=== PATIENT | female | born 1995 | race Hispanic/Latino ===

== ENCOUNTER 2020-08-14 15:50 | Emergency (ER) | payer SELFPAY ==
[2020-08-14 17:37] LABS: SARS-COV-2 RT PCR POSITIVE (NEGATIVE)
--- NOTE | 2020-08-14 17:43 | ER ---
Nurse's Notes [facility] Name: Renee Luna Age: 25 yrs Sex: Female : 1995 Arrival Date: 08/14/2020 Time: 15:54 Bed 2 Private MD: Diagnosis: Coronavirus infection, unspecified Presentation: 08/14 15:58 Chief complaint: Patient states: "I am having problems breathing and my head is jd3 hurting. X 3-4 days. My has COVID.". Coronavirus screen: difficulty breathing, Client presents with at least one sign or symptom that may indicate coronavirus-19. Standard/surgical mask placed on the client. Provider contacted for isolation considerations. Ebola Screen: Patient negative for fever greater than or equal to 101.5 degrees Fahrenheit, and additional compatible Ebola Virus Disease symptoms. Initial Sepsis Screen: Does the patient meet any 2 criteria? No. Patient's initial sepsis screen is negative. Does the patient have a suspected source of infection? No. Patient's initial sepsis screen is negative. Risk Assessment: Do you want to hurt yourself or someone else? Patient reports no desire to harm self or others. Note Tylenol taken at 1400. Onset of symptoms was August 11, 2020. 15:58 Method Of Arrival: Ambulatory [facility] 15:58 Acuity: AMY 4 jd3 Triage Assessment: 16:44 Headache History: Denies prior headaches. zb 16:44 Pain: Also complains of no other associated symptoms. 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 - Social history:: Smoking status: Patient denies any tobacco usage or history of. Screenin:42 Abuse screen: Denies threats or abuse. Denies injuries from another. Abuse screen: zb Denies threats or abuse. Nutritional screening: No deficits noted. reports no taste and no smell. . Tuberculosis screening: No symptoms or risk factors identified. Fall Risk None identified. Assessment: 16:39 General: Appears in no apparent distress. uncomfortable, Behavior is calm, cooperative, zb appropriate for age, Reports chills for 2-3 days, fever for 2-3 days, feeling ill for 2-3 days, fatigue for 2-3 days. Pain: Complains of pain in forehead Pain does not radiate. Pain currently is 6 out of 10 on a pain scale. Quality of pain is described as aching, Pain began 1 day ago. Is continuous, Alleviated by nothing. Neuro: Level of Consciousness is awake, alert, obeys commands, Oriented to person, place, time, situation. Cardiovascular: Heart tones S1 S2 present Capillary refill < 3 seconds in bilateral fingers Patient's skin is warm and dry. Pulses are all present. Respiratory: Reports shortness of breath on exertion cough that is pain with cough since 3 days Airway is patent Respiratory effort is even, unlabored, Respiratory pattern is regular, symmetrical, Breath sounds are clear bilaterally. the patient has mild shortness of breath. Respiratory: Denies pain with respiration. GI: Abdomen is round non-distended, Bowel sounds present X 4 quads. Patient currently denies constipation, diarrhea, nausea, vomiting. : No signs and/or symptoms were reported regarding the genitourinary system. EENT: No signs and/or symptoms were reported regarding the EENT system. Derm: Skin is intact, is healthy with good turgor, Skin is diaphoretic, Skin is normal, Skin temperature is warm. Musculoskeletal: Circulation, motion, and sensation intact. Range of motion: intact in all extremities. 17:57 Reassessment: Patient appears in no apparent distress at this time. Patient and/or zb family updated on plan of care and expected duration. Pain level reassessed. Patient is alert, oriented x 3, equal unlabored respirations, skin warm/dry/pink. pt educated on covid precautions. Vital Signs: 16:00 BP 115 / 76; Pulse 99; Resp 17 S; Temp 98.0(TE); Pulse Ox 99% on R/A; Weight 104.33 kg jd3 (R); Height 5 ft. 6 in. (167.64 cm) (R); Pain 6/10; 16:44 BP 108 / 88; Pulse 98; Resp 18; Pulse Ox 98% on R/A; zb 17:50 BP 106 / 84; Pulse 91; Resp 18; Pulse Ox 98% on R/A; zb 16:00 Body Mass Index 37.12 (104.33 kg, 167.64 cm) [facility] ED Course: 15:54 Patient arrived in ED. ag5 15:57 Carlos Yao PA is PHCP. [facility] 15:57 Mir Gutierres MD is Attending Physician. [facility] 15:59 Triage completed. jd3 16:00 Arm band placed on. j 16:25 Ángela Park, RN is Primary Nurse. zb 16:43 Patient has correct armband on for positive identification. Bed in low position. Call zb light in reach. Side rails up X 1. Pulse ox on. NIBP on. 17:57 No provider procedures requiring assistance completed. Patient did not have IV access zb during this emergency room visit. Administered Medications: No medications were administered Outcome: 17:42 Discharge ordered by . [facility] 17:58 Discharged to home ambulatory. zb 17:58 Condition: stable 17:58 Discharge instructions given to patient, Instructed on discharge instructions, follow up and referral plans. medication usage, covid precautions Demonstrated understanding of instructions, follow-up care, medications, covid precautions Prescriptions given X 3. 17:58 Patient left the ED. zb Signatures: Carlos Yao PA PA Salas Orosco RN RN Deanna Guerra 5 Ángela Park RN RN zb Corrections: (The following items were deleted from the chart) 16:46 16:39 Cardiovascular: Heart tones S1 S2 present Capillary refill < 3 seconds in zb bilateral fingers Patient's skin is warm and dry. Pulses are all present. zb 16:46 16:39 Derm: Skin is intact, is healthy with good turgor, Skin is dry, Skin is normal, zb Skin temperature is warm zb 16:47 16:44 BP 91 / 54; Pulse 98bpm; Resp 18bpm; Pulse Ox 98% RA; zb zb
--- NOTE | 2020-08-14 17:44 | EDPHYS ---
Physician Documentation [facility] Name: Renee Luna Age: 25 yrs Sex: Female : 1995 Arrival Date: 08/14/2020 Time: 15:54 Bed 2 Private MD: ED Physician Mir Gutierres HPI: 08/14 17:06 This 25 yrs old Female presents to ER via Ambulatory with complaints of cough. jmm 17:06 The patient or guardian reports cough. Onset: The symptoms/episode began/occurred jmm gradually, 3 day(s) ago. Modifying factors: The symptoms are alleviated by nothing. the symptoms are aggravated by nothing. Associated signs and symptoms: Pertinent negatives: fever, vomiting. This is a 25 year old female with no chronic medical ocndiitons that presents to the ED with complaints oc cough, shortness of breath, congestion. recently diagnosed with covid. Patient's symptoms have been ongoing for 3 days. . 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 - Social history:: Smoking status: Patient denies any tobacco usage or history of. ROS: 17:06 Constitutional: Positive for body aches, chills, fever. jmm 17:06 Respiratory: Positive for cough. 17:06 Neuro: Positive for headache. 17:06 All other systems are negative. Exam: 17:06 Constitutional: This is a well developed, well nourished patient who is awake, alert, jmm and in no acute distress. Head/Face: atraumatic. Eyes: EOMI, no conjunctival erythema appreciated ENT: Moist Mucus Membranes Neck: Trachea midline, Supple Chest/axilla: Normal chest wall appearance and motion. Cardiovascular: Regular rate and rhythm. No edema appreciated Respiratory: Normal respirations, no respiratory distress appreciated Abdomen/GI: Non distended, soft Back: Normal ROM Skin: General appearance color normal MS/ Extremity: Moves all extremities, no obvious deformities appreciated, no edema noted to the lower extremities Neuro: Awake and alert, normal gait Psych: Behavior is normal, Mood is normal, Patient is cooperative and pleasant Vital Signs: 16:00 BP 115 / 76; Pulse 99; Resp 17 S; Temp 98.0(TE); Pulse Ox 99% on R/A; Weight 104.33 kg jd3 (R); Height 5 ft. 6 in. (167.64 cm) (R); Pain 6/10; 16:44 BP 108 / 88; Pulse 98; Resp 18; Pulse Ox 98% on R/A; zb 17:50 BP 106 / 84; Pulse 91; Resp 18; Pulse Ox 98% on R/A; zb 16:00 Body Mass Index 37.12 (104.33 kg, 167.64 cm) jd3 MDM: 16:38 Patient medically screened. [facility] 17:37 Data reviewed: vital signs, nurses notes. Counseling: I had a detailed discussion with pranay the patient and/or guardian regarding: the historical points, exam findings, and any diagnostic results supporting the discharge/admit diagnosis, lab results, the need for outpatient follow up. ED course: Patient is alert and non toxic in appearance in the ED. No signs of resp distress. patient is advised to follow up with pcp and otherwise given strict return precautions. patient understood and agrees with the plan of care. . 08/14 16:12 Order name: COVID-19 : Document "Date of Symptom Onset" if Symptomatic. iw 08/14 17:37 Order name: COVID-19/FLU A+B; Complete Time: 17:37 EDMS Administered Medications: No medications were administered Disposition: 18:17 Co-signature as Attending Physician, Mir Gutierres MD. rn Disposition: 08/14/20 17:42 Discharged to Home. Impression: Coronavirus infection, unspecified. - Condition is Stable. - Discharge Instructions: COVID-19. - Prescriptions for ivermectin 3 mg Oral tablet - take 6 tablet by ORAL route as directed one dose today and one dose on day 3; 12 tablet. Prednisone 20 mg Oral Tablet - take 3 tablet by ORAL route once daily for 5 days; 15 tablet. Albuterol Sulfate 90 mcg/actuation - inhale 1-2 puff by INHALATION route every 4-6 hours; 1 Inhaler. - Medication Reconciliation Form, Thank You Letter, Antibiotic Education, Prescription Opioid Use form. - Follow up: Private Physician; When: 2 - 3 days; Reason: Recheck today's complaints, Continuance of care, Re-evaluation by your physician. Signatures: Dispatcher [employer] EDAZ Carlos Yao PA PA jmm Nieto, Roman, MD MD rn Davies, Jonathon, RN RN jd3 Brown, Zipporah, RN RN zb Corrections: (The following items were deleted from the chart) 16:38 16:03 Influenza Screen (A ordered. EDAZ EDAZ 16:38 16:03 Influenza Screen (A \\T\\ B)+[id number].BRZ ordered. EDAZ EDMS 16:39 16:12 CORONAVIRUS ordered. [facility] EDMS 17:58 17:42 08/14/2020 17:42 Discharged to Home. Impression: Coronavirus infection, zb unspecified. Condition is Stable. Forms are Medication Reconciliation Form, Thank You Letter, Antibiotic Education, Prescription Opioid Use. Follow up: Private Physician; When: 2 - 3 days; Reason: Recheck today's complaints, Continuance of care, Re-evaluation by your physician. pranay
[2020-08-14 18:06] VITALS: TEMP 98
[2020-08-14 18:07] VITALS: BP 108/88; O2SAT 98
== END 2020-08-14 17:58 | disposition home or self-care (01) ==
LOC: ER 15:50
DX: U07.1 COVID-19 (principal)
CPT/HCPCS: 0240U; 99283

== ENCOUNTER 2020-08-18 16:37 | Inpatient (IN) | payer SELFPAY ==
[2020-08-18] MEDS ORDERED: ACETAMINOPHEN 500 MG TAB ONE (17:41)
[2020-08-18] MEDS ORDERED: Remdesivir 200 MG in NA CHLORIDE 0.9% 250 ML IV ONE (18:00)
--- NOTE | 2020-08-18 18:08 | RAD REPORT ---
EXAM DESCRIPTION: RAD - Chest Single View - 08/18/2020 6:02 pm CLINICAL HISTORY: Cough;Dyspnea Chest pain. COMPARISON: No comparisons FINDINGS: Portable technique limits examination quality. Moderate bilateral pulmonary opacities are seen likely representing COVID pneumonia. The heart is nor mal in size. No displaced fractures.
[2020-08-18 18:25] LABS: Absolute Lymphocytes (CBC) 0.6 K/uL (0.7-4.9); Basophils % 0.1 % (0-1.3); Hematocrit 35.7 % (36.0-45.0); Lymphocytes % 8.5 % (15.3-44.8); MPV 9.8 fL (7.6-11.3)
[2020-08-18 18:30] LABS: Protime INR 1.56
[2020-08-18 18:40] LABS: ALT/SGPT 24 U/L (12-78); AST/SGOT 16 U/L (15-37); Albumin 3.5 g/dL (3.4-5.0); Alkaline Phosphatase 60 U/L (45-117); BUN Blood Urea Nitrogen 10 mg/dL (7-18); Bicarbonate 24 mmol/L (21-32); Bilirubin Direct < 0.1 mg/dL (0-0.2); Bilirubin Total 0.3 mg/dL (0.2-1.0); Ferritin 114.5 ng/mL (8-388); Glucose Level 106 mg/dL (74-106); Lipase 40 U/L (73-393); Potassium 3.8 mmol/L (3.5-5.1); Protein, Total 8.2 g/dL (6.4-8.2); Sodium Level 141 mmol/L (136-145); Troponin (Emerg Dept Use Only) < 0.02 ng/mL (0.0-0.045)
[2020-08-18 19:20] LABS: Blood Morphology Comment NOT SEEN (NOT SEEN); Platelet Estimate ADEQ
--- NOTE | 2020-08-18 19:36 | RAD REPORT ---
EXAM DESCRIPTION: CT - Chest For Pe Angio - 08/18/2020 7:19 pm CLINICAL HISTORY: Chest pain. Chest pain;Dyspnea COMPARISON: No comparisons TECHNIQUE: CT angiogram of the pulmonary arteries was performed with MIP. All CT scans are performed using dose optimization technique as appropriate and may include automated exposure control or mA/KV adjustment according to patient size. FINDINGS: No evidence of pulmonary thromboembolism. No acute aortic finding demonstrated. Extensive bilateral alveolar lung infiltrates are present likely representing COVID-19 infection. No significant pericardial or pleural fluid. No concerning bony finding. IMPRESSION: No evidence of pulmonary thromboembolism. Extensive bilateral alveolar lung infiltrates are present likely representing COVID-19 infection.
--- NOTE | 2020-08-18 19:51 | ER ---
Nurse's Notes [facility] Name: Renee Luna Age: 25 yrs Sex: Female : 1995 Arrival Date: 08/18/2020 Time: 16:39 Bed 19 Private MD: Diagnosis: Coronavirus infection, unspecified;Hypoxia;Viral pneumonia, unspecified Presentation: 08/18 17:12 Chief complaint: Spouse and/or significant other states: Covid+ 08/14/2020, s/s started ca1 08/10/2020. 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 C/O SOB, fatigue and fever, diarrhea. Tylenol last taken at 1200 today. Coronavirus screen: Client denies travel out of the [place] in the last 14 days. cough unrelated to allergies, diarrhea, fatigue, fever, shortness of breath, Client presents with at least one sign or symptom that may indicate coronavirus-19. Standard/surgical mask placed on the client. Provider contacted for isolation considerations. Client reports previous positive COVID test result. Date of collection: August 14, 2020. Ebola Screen: Patient negative for fever greater than or equal to 101.5 degrees Fahrenheit, and additional compatible Ebola Virus Disease symptoms Patient denies exposure to infectious person. Patient denies travel to an Ebola-affected area in the 21 days before illness onset. No symptoms or risks identified at this time. Initial Sepsis Screen: Does the patient meet any 2 criteria? No. Patient's initial sepsis screen is negative. Does the patient have a suspected source of infection? No. Patient's initial sepsis screen is negative. Risk Assessment: Do you want to hurt yourself or someone else? Patient reports no desire to harm self or others. 17:12 Method Of Arrival: Wheelchair ca1 17:12 Acuity: AMY 3 ca1 21:30 Onset of symptoms is unknown. ll2 Triage Assessment: 17:20 General: Appears distressed, uncomfortable, ill, obese, Behavior is cooperative, bp appropriate for age. Pain: Complains of pain in chest. EENT: No deficits noted. Neuro: Level of Consciousness is awake, alert, obeys commands, Oriented to person, place, time, situation, Appropriate for age. Cardiovascular: No deficits noted. Respiratory: Reports shortness of breath cough that is Onset: The symptoms/episode began/occurred 3 DAYS AGO, the patient has moderate shortness of breath. GI: No signs and/or symptoms were reported involving the gastrointestinal system. : No signs and/or symptoms were reported regarding the genitourinary system. Derm: No deficits noted. Musculoskeletal: No deficits noted. 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 - Social history:: Smoking status: Patient denies any tobacco usage or history of. Screenin:28 Abuse screen: Denies threats or abuse. Denies injuries from another. Nutritional bp screening: No deficits noted. Tuberculosis screening: No symptoms or risk factors identified. Fall Risk None identified. Assessment: 17:20 General: SEE TRIAGE NOTE. bp 18:39 Cardiovascular: Rhythm is sinus rhythm Chest pain is described as mild. Respiratory: bp Airway is patent Respiratory effort is even, labored, Breath sounds are coarse. 19:25 Reassessment: No changes from previously documented assessment. Patient and/or family ll2 updated on plan of care and expected duration. Pain level reassessed. PT RETURNED FROM CT. 20:30 Reassessment: hospitalist to bedside discussing plans to admit, N/C applied at 2L. ll2 21:27 Reassessment: Patient and/or family updated on plan of care and expected duration. Pain ll2 level reassessed. Patient is alert, oriented x 3, equal unlabored respirations, skin warm/dry/pink. report given to RAUL ordonez. Vital Signs: 17:12 BP 100 / 61; Pulse 120; Resp 20; Temp 100.7(O); Pulse Ox 97% on R/A; Weight 104.33 kg ca1 (R); Height 5 ft. 6 in. (167.64 cm) (R); 18:35 BP 108 / 61; Pulse 101; Resp 34; Pulse Ox 96% ; bp 19:26 BP 105 / 57; Pulse 98; Resp 24; Pulse Ox 93% ; ll2 19:46 BP 105 / 57; Pulse 112; Resp 36; Pulse Ox 89% on R/A; dh4 17:12 Body Mass Index 37.12 (104.33 kg, 167.64 cm) ca1 ED Course: 16:39 Patient arrived in ED. ag5 17:14 Triage completed. ca1 17:15 Arm band placed on right wrist. ca1 17:21 Kesha Deshpande FNP-C is [facility]. kb 17:21 Mir Gutierres MD is Attending Physician. kb 17:25 Clinton Edmonds, RN is Primary Nurse. bp 17:28 Patient has correct armband on for positive identification. Bed in low position. Call bp light in reach. Side rails up X2. Adult w/ patient. 17:28 No provider procedures requiring assistance completed. bp 18:01 CXR XRAY In Process Unspecified. EDMS 18:05 Inserted saline lock: 20 gauge in right antecubital area, using aseptic technique. bp Blood collected. 19:19 CT Chest For PE Angio In Process Unspecified. EDMS 20:02 Jose Raul Palacios MD is Hospitalizing Provider. kb 21:29 Patient admitted, IV remains in place. ll2 Administered Medications: 17:26 Drug: Tylenol 1000 mg Route: PO; ca1 18:31 Follow up: Response: No adverse reaction bp 20:39 Drug: Decadron - Dexamethasone 10 mg Route: IVP; Site: right antecubital; ll2 Outcome: 19:51 Discharge ordered by MD. kb 20:02 Decision to Hospitalize by Provider. kb 21:29 Admitted to Med/surg accompanied by tech, with oxygen, Report called to RAUL Ordonez ll2 21:29 Condition: stable 21:29 Instructed on the need for admit. 21:30 Patient left the ED. ll2 Signatures: Dispatcher [employer] EDCO Kesha Deshpande FNP-C FNP-CkClinton Shepherd, RN RN bp Dagmar Marrufo RN RN ca1 AriaDeanna ag5 Johnson Zuniga 4 Twila Munoz RN RN ll2 Corrections: (The following items were deleted from the chart) 17:15 17:12 Chief complaint: Spouse and/or significant other states: Covid+ 08/14/2020, s/s ca1 started 08/10/2020. 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 C/O SOB, fatigue and fever ca1 18:48 18:38 General: SEE TRIAGE NOTE. bp bp
--- NOTE | 2020-08-18 19:52 | EDPHYS ---
Physician Documentation [facility] Name: Renee Luna Age: 25 yrs Sex: Female : 1995 Arrival Date: 08/18/2020 Time: 16:39 Bed 19 Private MD: ED Physician Mir Gutierres HPI: 08/18 20:13 This 25 yrs old Female presents to ER via Wheelchair with complaints of kb Breathing Difficulty, Chest Pain, Diarrhea. 20:13 The patient has shortness of breath at rest. Onset: The symptoms/episode began/occurred kb 8 day(s) ago, and became worse 3 day(s) ago. Duration: The symptoms are continuous. The patient's shortness of breath is aggravated by exertion. Associated signs and symptoms: Pertinent positives: chest pain, non-productive cough, fever, nausea, vomiting. Severity of symptoms: At their worst the symptoms were moderate in the emergency department the symptoms are unchanged. The patient has not experienced similar symptoms in the past. The patient has been recently seen by a physician:. Pt reports shortness of breath, chest pain, fever, n/v/d for 8 days, SOB got worse 3 days ago. 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 - Social history:: Smoking status: Patient denies any tobacco usage or history of. ROS: 20:12 Back: Negative for injury and pain, MS/Extremity: Negative for injury and deformity, kb Skin: Negative for injury, rash, and discoloration, Neuro: Negative for headache, weakness, numbness, tingling, and seizure. 20:12 Constitutional: Positive for fever. 20:12 Cardiovascular: Positive for chest pain, Negative for edema, orthopnea, palpitations, paroxysmal nocturnal dyspnea. 20:12 Respiratory: Positive for cough, shortness of breath. 20:12 Abdomen/GI: Positive for nausea, vomiting, and diarrhea. Exam: 20:12 Constitutional: This is a well developed, well nourished patient who is awake, alert, kb and in no acute distress. Head/Face: Normocephalic, atraumatic. Abdomen/GI: Soft, non-tender, with normal bowel sounds. No distension or tympany. No guarding or rebound. No evidence of tenderness throughout. Skin: Warm, dry with normal turgor. Normal color with no rashes, no lesions, and no evidence of cellulitis. MS/ Extremity: Pulses equal, no cyanosis. Neurovascular intact. Full, normal range of motion. 20:12 Cardiovascular: Rate: tachycardic, Rhythm: regular. 20:12 Respiratory: mild respiratory distress is noted, Respirations: labored breathing, that is mild, tachypnea, that is mild, Breath sounds: are clear throughout. 20:12 Neuro: Orientation: is normal, to person, place, time \T\ situation. Mentation: is normal, able to follow commands, Motor: is normal, moves all fours, Gait: is steady. Vital Signs: 17:12 BP 100 / 61; Pulse 120; Resp 20; Temp 100.7(O); Pulse Ox 97% on R/A; Weight 104.33 kg ca1 (R); Height 5 ft. 6 in. (167.64 cm) (R); 18:35 BP 108 / 61; Pulse 101; Resp 34; Pulse Ox 96% ; bp 19:26 BP 105 / 57; Pulse 98; Resp 24; Pulse Ox 93% ; ll2 19:46 BP 105 / 57; Pulse 112; Resp 36; Pulse Ox 89% on R/A; dh4 17:12 Body Mass Index 37.12 (104.33 kg, 167.64 cm) ca1 MDM: 17:21 Patient medically screened. kb 19:53 Data reviewed: vital signs, nurses notes. Data interpreted: Pulse oximetry: on room air kb is 94 %. Interpretation: acceptable. 20:10 Counseling: I had a detailed discussion with the patient and/or guardian regarding: the kb historical points, exam findings, and any diagnostic results supporting the discharge/admit diagnosis, lab results, radiology results, the need for further work-up and treatment in the hospital. ED course: Pt 93-94% on room air at rest, 89% upon ambulation. Resp 24-32. . 08/18 17:22 Order name: Blood Culture Adult (2) kb 08/18 17:22 Order name: BMP; Complete Time: 18:41 kb 08/18 17:22 Order name: C-Reactive Protein; Complete Time: 18:41 kb 08/18 17:22 Order name: CBC with Diff; Complete Time: 19:21 kb 08/18 17:22 Order name: D-Dimer; Complete Time: 18:39 kb 08/18 17:22 Order name: Ferritin; Complete Time: 18:41 kb 08/18 17:22 Order name: Lactate; Complete Time: 18:34 kb 08/18 17:22 Order name: LFT's; Complete Time: 18:41 kb 08/18 17:22 Order name: Lipase; Complete Time: 18:41 kb 08/18 17:22 Order name: Procalcitonin; Complete Time: 19:14 kb 08/18 17:22 Order name: PT-INR; Complete Time: 18:39 kb 08/18 17:22 Order name: Ptt, Activated; Complete Time: 18:39 kb 08/18 17:22 Order name: Troponin (emerg Dept Use Only); Complete Time: 18:41 kb 08/18 18:27 Order name: Manual Differential; Complete Time: 19:21 EDMS 08/18 17:22 Order name: CXR XRAY; Complete Time: 18:10 kb 08/18 17:22 Order name: EKG; Complete Time: 17:23 kb 08/18 17:22 Order name: Cardiac monitoring; Complete Time: 18:30 kb 08/18 17:22 Order name: Droplet/Contact Precautions; Complete Time: 17:44 kb 08/18 17:22 Order name: EKG - Nurse/Tech; Complete Time: 18:30 kb 08/18 17:22 Order name: IV Start; Complete Time: 18:30 kb 08/18 17:22 Order name: Labs collected and sent; Complete Time: 18:31 kb 08/18 17:22 Order name: O2 Per Protocol; Complete Time: 17:44 kb 08/18 17:22 Order name: O2 Sat Monitoring; Complete Time: 17:44 kb 08/18 18:04 Order name: CT Chest For PE Angio; Complete Time: 19:39 kb 08/18 20:43 Order name: CONS Physician Consult EDMS Administered Medications: 17:26 Drug: Tylenol 1000 mg Route: PO; ca1 18:31 Follow up: Response: No adverse reaction bp 20:39 Drug: Decadron - Dexamethasone 10 mg Route: IVP; Site: right antecubital; ll2 Disposition: 08/18/20 20:02 Hospitalization ordered by Jose Raul Palacios for Observation. Preliminary diagnosis are Coronavirus infection, unspecified, Hypoxia, Viral pneumonia, unspecified. - Bed requested for Telemetry/MedSurg (observation). - Status is Observation. ll2 - Condition is Stable. - Problem is new. - Symptoms are unchanged. Addendum: 08/23/2020 15:56 Co-signature as Attending Physician, Mir Gutierres MD. r n Signatures: Dispatcher [employer] [facility] Kesha Deshpande, BLOOD BANK TECHNICIAN-C BLOOD BANK TECHNICIAN-Ckb Mir Gutierres MD MD rn Lasagna, Tonya RN RN tl1 Dagmar Marrufo RN RN ca1 Twila Munoz RN RN ll2 Clinton Edmonds RN bp Corrections: (The following items were deleted from the chart) 08/18 19:55 19:51 08/18/2020 19:51 Discharged to Home. Impression: Coronavirus infection, kb unspecified. Condition is Stable. Forms are Medication Reconciliation Form, Thank You Letter, Antibiotic Education, Prescription Opioid Use. Follow up: Emergency Department; When: As needed; Reason: Worsening of condition. Follow up: Private Physician; When: 2 - 3 days; Reason: Recheck today's complaints, Continuance of care, Re-evaluation by your physician. kb 20:41 20:08 CORONAVIRUS+ ordered. [facility] 20:59 20:02 Hospitalization Ordered by Jose Raul Palacios MD for Observation. Preliminary tl1 diagnosis is Coronavirus infection, unspecified; Hypoxia; Viral pneumonia, unspecified. Bed requested for Telemetry/MedSurg (observation). Status is Observation. Condition is Stable. Problem is new. Symptoms are unchanged. kb 21:30 20:59 08/18/2020 20:02 Hospitalization Ordered by Jose Raul Palacios MD for Observation. ll2 Preliminary diagnosis is Coronavirus infection, unspecified; Hypoxia; Viral pneumonia, unspecified. Bed requested for Telemetry/MedSurg (observation). Status is Observation. Condition is Stable. Problem is new. Symptoms are unchanged. tl1
[2020-08-18] MEDS ORDERED: dexAMETHasone 10 MG/ML VIAL ONE (20:22)
[2020-08-18] MEDS ORDERED: ACETAMINOPHEN 325 MG TABLET PO PRN (22:15)
[2020-08-18 23:10] LABS: Specific Gravity >= 1.030 (1.005-1.030); Urine Appearance CLEAR; Urine Bilirubin NEGATIVE (NEG); Urine Blood NEGATIVE (NEG); Urine Color YELLOW; Urine Glucose NEGATIVE (NEG); Urine Microscopic Reflex ORDER UMIC; Urine Protein 2+ (NEG); Urine Specific Gravity >=1.030 (1.005-1.030)
[2020-08-18] MEDS: APIXABAN 2.5 MG TABLET PO SCH (23:14)
[2020-08-18] MEDS: THIAMINE 200 MG/2 ML INJ IVP SCH (23:15)
[2020-08-18] MEDS: METHYLPREDNISOLONE 40 MG INJ IV SCH (23:15)
[2020-08-18] MEDS: FAMOTIDINE 20 MG/2 ML VIAL IV SCH (23:15)
[2020-08-18] MEDS: ASCORBIC ACID 500 MG TABLET PO SCH (23:15)
[2020-08-18] MEDS: MELATONIN 5 MG TABLET PO SCH (23:15)
[2020-08-18] MEDS: NA CHLORIDE 0.9% 1,000 ML IV SCH (23:16)
[2020-08-19 00:01] LABS: Urine Bacteria <20 /HPF (<20); Urine RBC <5 /HPF (NONE SEEN)
--- NOTE | 2020-08-19 00:41 | P.HP ---
Certification for Inpatient Patient admitted to: Inpatient With expected LOS: >2 Midnights Patient will require the following post-hospital care: None Practitioner: I am a practitioner with admitting privileges, knowledge of patient current condition, hospital course, and medical plan of care. Services: Services provided to patient in accordance with Admission requirements found in Title 42 Section 412.3 of the Code of Federal Regulations <Bill Jason - Last Filed: 08/19/20 00:35> Patient History Date of Service: 08/19/20 Primary Care Provider: None Reason for admission: COVID Pneumonia, Hypoxia History of Present Illness: This is a 25-year-old female with no known allergies, no past medical history, no surgical history and is currently on no medications that presented to the emergency room after having increased shortness of breath with cough over the last 8 days. Patient states about 3 days ago had increasingly become worse. Has mild shortness of breath at rest but increase shortness of breath with exertion. Patient was worked up in the emergency room today and have a sodium of 141, potassium 3.8, chloride 110, bicarb 24, BUN 10, creatinine 0.54, glucose 106. Patient had a CRP of 131. Patient had a hemoglobin of 11.7, white cell count is 7.5, hematocrit of 35.7, platelet of 201. Chest x-ray shows moderate bilateral pulmonary opacities consistent with covid pneumonia. CT PE did not show any acute pulmonary embolism. Patient stated that she was tested for sores about 4 days ago and was positive. Patient was monitored in the emergency room for while. Patient off oxygen at rest at a oxygen saturation 93% but with any sort of exertion had dropped down to 88-89% room air. Medicine was consulted at that time for further evaluation and patient will be admitted. Home medications list reviewed: Yes - Past Medical/Surgical History Has patient received pneumonia vaccine in the past: No Diabetic: No - Family History Mother Notes: asthma - Social History Smoking Status: Never smoker Smoking therapy provided: No Alcohol use: No CD- Drugs: No Caffeine use: Yes Place of Residence: Home <Melany Jasonshua - Last Filed: 08/19/20 00:35> Date of Service: 08/19/20 <Jose Raul Palacios - Last Filed: 08/23/20 01:48> Allergies No Known Allergies Allergy (Unverified 08/18/20 21:26) Home Medications: NK [No Home Meds] 08/18/20 Review of Systems General: Fever, Malaise Eyes: Unremarkable ENT: Unremarkable Respiratory: Cough, Shortness of Breath, SOB with Excertion Cardiovascular: Unremarkable Gastrointestinal: Nausea, Vomiting Genitourinary: Unremarkable Musculoskeletal: Unremarkable Integumentary: Unremarkable Neurological: Unremarkable Lymphatics: Unremarkable <Bill Jason - Last Filed: 08/19/20 00:35> Physical Examination - Vital Signs Temperature: 98.3 F Blood Pressure: 104/58 Pulse: 93 Respirations: 19 Pulse Ox (%): 95 - Physical Exam General: Alert, In no apparent distress, Oriented x3, Cooperative HEENT: PERRLA, EOMI Neck: Supple, 2+ carotid pulse no bruit, JVD not distended Respiratory: Clear to auscultation bilaterally, Other (Tachypneic) Cardiovascular: No edema, Normal pulses, Regular rate/rhythm, Normal S1 S2, No gallops, No rubs, No murmurs Capillary refill: <2 Seconds Gastrointestinal: Normal bowel sounds, Soft and benign, Non-distended, No ascites, No tenderness, No masses, No rebound, No guarding Musculoskeletal: No clubbing, No swelling, No contractures, No erythema, No tenderness, No warmth Integumentary: No rashes, No breakdown, No significant lesion, No tenderness/swelling, No erythema, No warmth, No cyanosis Neurological: Normal speech, Normal strength at 5/5 x4 extr, Normal tone, Sensation intact, Cranial nerves 3-12 intact, Normal affect Lymphatics: No axilla or inguinal lymphadenopathy - Studies Laboratory Data (last 24 hrs) 08/18/20 18:05: PT 18.0 H, INR 1.56, APTT 25.6 08/18/20 18:05: WBC 7.50, Hgb 11.7 L, Hct 35.7 L, Plt Count 201 08/18/20 18:05: Sodium 141, Potassium 3.8, BUN 10, Creatinine 0.54 L, Glucose 106, Total Bilirubin 0.3, AST 16, ALT 24, Alkaline Phosphatase 60, Lipase 40 L <Bill Jason - Last Filed: 08/19/20 00:35> Assessment and Plan - Problems (Diagnosis) (1) Pneumonia due to COVID-19 virus Current Visit: Yes Status: Acute Plan: Patient has moderate bilateral pulmonary opacities consistent with viral pneumonia from SARs virus. Patient has been placed on vitamin regimen along with steroid therapy, oxygen therapy, anticoagulation therapy. Pulmonology has been consulted for further recommendations. Will also start Remdisivir on patient. We will continue to monitor patient's respiratory drive and will escalate oxygen therapy as needed. Will continue to monitor CBC and BMP daily along with her ferritin and C-reactive protein. (2) Hypoxia Current Visit: Yes Status: Acute Plan: Patient placed on oxygen therapy via nasal cannula and has been tolerating that very well. We will continue to monitor the patient's respiratory status along with continuous pulse oximetry. We will escalate as needed. Discharge Plan: Home Plan to discharge in: 48 Hours - Advance Directives Does patient have a Living Will: No Does patient have a Durable POA for Healthcare: No - Code Status/Comfort Care Code Status Assessed: Yes Code Status: Full Code Critical Care: No Time Spent Managing Pts Care (In Minutes): 70 <Bill Jason - Last Filed: 08/19/20 00:35> - Problems (Diagnosis) (1) Hypoxia Current Visit: Yes Status: Acute (2) Pneumonia due to COVID-19 virus Current Visit: Yes Status: Acute <Jose Raul Palacios - Last Filed: 08/23/20 01:48> Date of Service: 08/19/20 Patient doing well. Patient on 3 L oxygen. Satting 96%. Continue monitoring closely. <Jose Raul Palacios - Last Filed: 08/23/20 01:48>
[2020-08-19 04:12] LABS: Absolute Lymphocytes (CBC) 0.7 K/uL (0.7-4.9); Basophils % 0.1 % (0-1.3); Hematocrit 34.4 % (36.0-45.0); Lymphocytes % 10.1 % (15.3-44.8); RBC Red Blood Cell Count 4.25 M/uL (3.86-4.86)
[2020-08-19 04:45] LABS: BUN Blood Urea Nitrogen 13 mg/dL (7-18); Bicarbonate 27 mmol/L (21-32); Glucose Level 135 mg/dL (74-106); HDL Cholesterol 37 mg/dL (40-60); LDL Cholesterol, Calculated 76 (<130); Potassium 4.4 mmol/L (3.5-5.1); Sodium Level 141 mmol/L (136-145)
--- NOTE | 2020-08-19 05:37 | EKG ---
Test Date: 2020-08-18 Test Time: 17:49:13 Transportation Job Titles: [employer] MEASUREMENT RESULTS: Intervals: Rate: 109 AR: 128 QRSD: 70 QT: 296 QTc: 398 [place]: P: 36 AR: 128 QRS: 41 T: 25 INTERPRETIVE STATEMENTS: Sinus tachycardia Possible Left atrial enlargement Low voltage QRS Borderline ECG No previous ECG available for comparison Electronically Signed On 08-19-20 05:35:22 PHYSICAL THERAPIST CLINIC DIRECTOR by Stef Montiel
[2020-08-19] MEDS: VITAMIN D 5,000 UNIT CAP PO SCH (08:12)
[2020-08-19] MEDS: METHYLPREDNISOLONE 40 MG INJ IV SCH ×2 (08:12→20:43)
[2020-08-19] MEDS: APIXABAN 2.5 MG TABLET PO SCH ×2 (08:12→20:44)
[2020-08-19] MEDS: ZINC SULFATE 220 MG CAP PO SCH (08:13)
[2020-08-19] MEDS: THIAMINE 200 MG/2 ML INJ IVP SCH ×2 (08:13→20:43)
[2020-08-19] MEDS: BENZONATATE 100 MG CAP PO PRN ×2 (08:13→21:33)
[2020-08-19] MEDS: FAMOTIDINE 20 MG/2 ML VIAL IV SCH ×2 (08:13→20:43)
[2020-08-19] MEDS: ASCORBIC ACID 500 MG TABLET PO SCH ×4 (08:13→20:44)
[2020-08-19] MEDS: NA CHLORIDE 0.9% 1,000 ML IV SCH (11:22)
[2020-08-19] MEDS: MELATONIN 5 MG TABLET PO SCH (20:43)
[2020-08-19] MEDS ORDERED: ONDANSETRON 4 MG/2 ML VIAL IV PRN (20:53)
[2020-08-19] MEDS ORDERED: ONDANSETRON 4 MG/2 ML VIAL ONE (21:15)
[2020-08-20] MEDS: NA CHLORIDE 0.9% 1,000 ML IV SCH (00:23)
[2020-08-20 03:49] LABS: Basophils % 0.1 % (0-1.3); Hematocrit 33.4 % (36.0-45.0); Lymphocytes % 7.6 % (15.3-44.8); MPV 9.2 fL (7.6-11.3); RBC Red Blood Cell Count 4.16 M/uL (3.86-4.86)
[2020-08-20 04:01] LABS: ALT/SGPT 22 U/L (12-78); AST/SGOT 13 U/L (15-37); Alkaline Phosphatase 54 U/L (45-117); BUN Blood Urea Nitrogen 15 mg/dL (7-18); Bicarbonate 25 mmol/L (21-32); Bilirubin Total 0.3 mg/dL (0.2-1.0); Ferritin 153.3 ng/mL (8-388); Glucose Level 140 mg/dL (74-106); Magnesium 2.3 mg/dL (1.8-2.4); NT PRO-BNP 133 pg/mL (<125); Phosphorus 3.9 mg/dL (2.5-4.9); Potassium 4.1 mmol/L (3.5-5.1); Protein, Total 7.4 g/dL (6.4-8.2); Sodium Level 146 mmol/L (136-145)
[2020-08-20 04:03] LABS: ALT/SGPT 21 U/L (12-78); AST/SGOT 13 U/L (15-37); Alkaline Phosphatase 51 U/L (45-117); BUN Blood Urea Nitrogen 14 mg/dL (7-18); Bicarbonate 27 mmol/L (21-32); Bilirubin Direct < 0.1 mg/dL (0-0.2); Bilirubin Total 0.3 mg/dL (0.2-1.0); Glucose Level 142 mg/dL (74-106); Potassium 4.1 mmol/L (3.5-5.1); Protein, Total 7.3 g/dL (6.4-8.2); Sodium Level 144 mmol/L (136-145)
[2020-08-20] MEDS: METHYLPREDNISOLONE 40 MG INJ IV SCH ×2 (08:22→19:57)
[2020-08-20] MEDS: ZINC SULFATE 220 MG CAP PO SCH (08:22)
[2020-08-20] MEDS: VITAMIN D 5,000 UNIT CAP PO SCH (08:22)
[2020-08-20] MEDS: APIXABAN 2.5 MG TABLET PO SCH ×2 (08:22→19:57)
[2020-08-20] MEDS: ASCORBIC ACID 500 MG TABLET PO SCH ×4 (08:22→19:57)
[2020-08-20] MEDS: THIAMINE 200 MG/2 ML INJ IVP SCH (08:23)
[2020-08-20] MEDS: FAMOTIDINE 20 MG/2 ML VIAL IV SCH ×2 (08:23→19:57)
[2020-08-20] MEDS: Remdesivir 100 MG in NA CHLORIDE 0.9% 250 ML IV SCH (09:15)
--- NOTE | 2020-08-20 11:49 | P.CNS ---
Date of Consult: 08/20/20 Primary Care Provider: None Chief Complaint: COVID Pneumonia, Hypoxia History of Present Illness: Patient is 25 years of age previously healthy obese admitted with worsening shortness of breath diagnosed with de santiago virus pneumonia become progressively weak for the past 8 days she is doing much better pack on nasal cannula oxygen no other complaints Allergies No Known Allergies Allergy (Unverified 08/18/20 21:26) Home Medications: NK [No Home Meds] 08/18/20 - Past Medical/Surgical History Diabetic: No - Family History Mother Notes: asthma - Social History Alcohol use: No CD- Drugs: No Caffeine use: Yes Place of Residence: Home Review of Systems 10-point ROS is otherwise unremarkable Physical Examination Temp Pulse Resp BP Pulse Ox 97.6 F 68 32 H 104/55 L 93 08/20/20 08:00 08/20/20 08:00 08/20/20 08:00 08/20/20 08:00 08/20/20 08:00 General: Alert, In no apparent distress, Oriented x3 Respiratory: Clear to auscultation bilaterally Cardiovascular: No edema, Normal S1 S2 - Problems (1) Pneumonia due to COVID-19 virus Current Visit: Yes Status: Acute Plan: Patient is 25 years of age admitted with de santiago virus pneumonia she is doing much better on 4 L nasal cannula oxygen plan to discharge tomorrow on O2 continue with steroids for about 2 weeks will give another dose of ivermectin Dc IV fluids vital signs stable follow-up with me in 2 weeks
[2020-08-20] MEDS: IVERMECTIN 3 MG TABLET PO SCH (12:50)
[2020-08-20] MEDS: BENZONATATE 100 MG CAP PO PRN (19:57)
[2020-08-20] MEDS: MELATONIN 5 MG TABLET PO SCH (19:57)
[2020-08-20] MEDS: ALPRAZOLAM 1 MG TABLET PO PRN (21:43)
[2020-08-21 04:30] LABS: ALT/SGPT 34 U/L (12-78); AST/SGOT 18 U/L (15-37); Albumin 2.9 g/dL (3.4-5.0); Alkaline Phosphatase 57 U/L (45-117); Bilirubin Direct 0.2 mg/dL (0-0.2); Bilirubin Total 0.4 mg/dL (0.2-1.0); Protein, Total 7.4 g/dL (6.4-8.2)
[2020-08-21 06:50] LABS: Urine Appearance CLEAR; Urine Bilirubin NEGATIVE (NEG); Urine Blood NEGATIVE (NEG); Urine Color YELLOW; Urine Glucose NEGATIVE (NEG); Urine Protein 1+ (NEG); Urine Specific Gravity >=1.030 (1.005-1.030)
[2020-08-21 07:38] LABS: Urine RBC <5 /HPF (NONE SEEN)
[2020-08-21 07:39] LABS: Urine Bacteria <20 /HPF (<20)
[2020-08-21] MEDS ORDERED: ALPRAZOLAM 1 MG TABLET PO SCH (09:00)
[2020-08-21] MEDS: Remdesivir 100 MG in NA CHLORIDE 0.9% 250 ML IV SCH (09:56)
[2020-08-21] MEDS: METHYLPREDNISOLONE 40 MG INJ IV SCH ×2 (09:56→21:03)
[2020-08-21] MEDS: ASCORBIC ACID 500 MG TABLET PO SCH ×4 (09:56→21:05)
[2020-08-21] MEDS: FAMOTIDINE 20 MG/2 ML VIAL IV SCH ×2 (09:57→21:02)
[2020-08-21] MEDS: VITAMIN D 5,000 UNIT CAP PO SCH (09:57)
[2020-08-21] MEDS: ZINC SULFATE 220 MG CAP PO SCH (09:57)
[2020-08-21] MEDS: APIXABAN 2.5 MG TABLET PO SCH ×2 (09:57→21:02)
[2020-08-21] MEDS: BENZONATATE 100 MG CAP PO PRN (10:08)
[2020-08-21] MEDS: ALPRAZOLAM 1 MG TABLET PO PRN ×2 (10:08→22:18)
[2020-08-21] MEDS: MELATONIN 5 MG TABLET PO SCH (21:02)
[2020-08-22 03:03] VITALS: BMI 35.8
[2020-08-22 04:20] LABS: ALT/SGPT 82 U/L (12-78); AST/SGOT 43 U/L (15-37); Alkaline Phosphatase 55 U/L (45-117); Bilirubin Direct 0.2 mg/dL (0-0.2); Bilirubin Total 0.5 mg/dL (0.2-1.0); Protein, Total 7.4 g/dL (6.4-8.2)
[2020-08-22] MEDS: ZINC SULFATE 220 MG CAP PO SCH (08:16)
[2020-08-22] MEDS: FAMOTIDINE 20 MG/2 ML VIAL IV SCH ×2 (08:16→20:57)
[2020-08-22] MEDS: APIXABAN 2.5 MG TABLET PO SCH ×2 (08:16→20:56)
[2020-08-22] MEDS: VITAMIN D 5,000 UNIT CAP PO SCH (08:16)
[2020-08-22] MEDS: METHYLPREDNISOLONE 40 MG INJ IV SCH ×2 (08:17→20:57)
[2020-08-22] MEDS: ALPRAZOLAM 1 MG TABLET PO PRN ×2 (08:17→23:47)
[2020-08-22] MEDS: ASCORBIC ACID 500 MG TABLET PO SCH ×4 (08:17→20:56)
--- NOTE | 2020-08-22 09:18 | P.PN ---
Subjective Date of Service: 08/20/20 Patient is on antiviral. Continue for a total 5 days. Continue monitoring oxygenation. Arrange for home oxygen today prior to last dose of antiviral Review of Systems 10-point ROS is otherwise unremarkable Physical Examination - Vital Signs Temperature: 97.6 F Blood Pressure: 102/64 Pulse: 67 Respirations: 32 Pulse Ox (%): 93 - Physical Exam General: Alert, In no apparent distress HEENT: Atraumatic, PERRLA, EOMI Neck: Supple, JVD not distended Respiratory: Clear to auscultation bilaterally, Normal air movement Cardiovascular: Regular rate/rhythm, Normal S1 S2 Gastrointestinal: Normal bowel sounds, No tenderness Musculoskeletal: No tenderness Integumentary: No rashes Neurological: Normal speech, Normal tone, Normal affect Lymphatics: No axilla or inguinal lymphadenopathy - Studies Medications List Reviewed: Yes Assessment & Plan - Problems (Diagnosis) (1) Hypoxia Current Visit: Yes Status: Acute (2) Pneumonia due to COVID-19 virus Current Visit: Yes Status: Acute - Plan 1. Monitor oxygenation 2. Continue IV steroids 3. Repeat chest x-ray is symptoms are progressively worsening 4. O2 per protocol 5. Pulmonary consultation 6. Continue with albuterol inhaler therapy; 7. Continue antivirals 8. Monitor LFTs 9. Repeat labs including D-dimer, ferritin, and CRP and LFTs 10. GI and DVT prophylaxis - Advance Directives Does patient have a Living Will: No Does patient have a Durable POA for Healthcare: No - Code Status/Comfort Care Code Status: Full Code
--- NOTE | 2020-08-22 09:19 | P.PN ---
Subjective Date of Service: 08/21/20 Patient continues to remain stable. She does not really making eye contact and she has a flat affect. She complains about going home. However, she remains hypoxic. Have advised her to finish her antiviral therapy and then reassess whether she is stable for discharge. She needs to get more active and start doing some more on her own. Review of Systems 10-point ROS is otherwise unremarkable Physical Examination - Vital Signs Temperature: 97.6 F Blood Pressure: 102/64 Pulse: 67 Respirations: 32 Pulse Ox (%): 93 - Physical Exam General: Alert, In no apparent distress, Oriented x3, Mild distress Respiratory: Expiratory wheezes, Rhonchi/gurgles Cardiovascular: Regular rate/rhythm, Normal S1 S2, Systolic murmur Gastrointestinal: Normal bowel sounds, Soft and benign, Non-distended Musculoskeletal: No clubbing, No swelling Neurological: Normal speech, Sensation intact, Cranial nerves 3-12 intact, Abnormal gait, Abnormal strength - Studies Medications List Reviewed: Yes Assessment & Plan - Problems (Diagnosis) (1) Hypoxia Current Visit: Yes Status: Acute (2) Pneumonia due to COVID-19 virus Current Visit: Yes Status: Acute (3) Morbid obesity Current Visit: Yes Status: Acute - Plan Plan of care as mentioned below 1. Monitor oxygenation 2. Continue IV steroids 3. We may repeat chest x-ray if symptoms are worsening 4. O2 per protocol 5. Pulmonary consultation Appreciated 6. Continue with albuterol inhaler therapy; 7. Continue antivirals 8. Monitor LFTs 9. [place] inflammatory markers as well 10. GI and DVT prophylaxis Discharge Plan: Home Plan to discharge in: Greater than 2 days - Advance Directives Does patient have a Living Will: No Does patient have a Durable POA for Healthcare: No - Code Status/Comfort Care Code Status: Full Code Critical Care: No Time Spent Managing PTS Care (In Minutes): 35
[2020-08-22] MEDS: Remdesivir 100 MG in NA CHLORIDE 0.9% 250 ML IV SCH (09:28)
[2020-08-22] MEDS ORDERED: IVERMECTIN 3 MG TABLET PO ONE (11:52)
--- NOTE | 2020-08-22 11:53 | P.PN ---
Subjective Date of Service: 08/22/20 Primary Care Provider: None Chief Complaint: COVID Pneumonia, Hypoxia Subjective: Improving ( patient is doing well did experience some desat early this morning back to her baseline) Review of Systems Respiratory: SOB with Excertion Physical Examination - Vital Signs Temperature: 97.6 F Blood Pressure: 102/64 Pulse: 67 Respirations: 32 Pulse Ox (%): 93 - Physical Exam General: Alert, In no apparent distress, Oriented x3 Neck: Supple Respiratory: Clear to auscultation bilaterally - Studies Medications List Reviewed: Yes Assessment & Plan - Problems (Diagnosis) (1) Pneumonia due to COVID-19 virus Current Visit: Yes Status: Acute Plan: respiratory failure doing well he does experience some desat at night advice to sleep in prone position plan for discharge on 2-4 L of nasal cannula oxygen labs reviewed niece to be on full anticoagulation and prednisone 20 b.i.d. for a week then 10 twice a day followed multi vitamin support of added to 1 dose of ivermectin
[2020-08-22] MEDS: IVERMECTIN 3 MG TABLET PO SCH (12:30)
[2020-08-22] MEDS: MELATONIN 5 MG TABLET PO SCH (20:56)
--- NOTE | 2020-08-23 01:58 | P.PN ---
Date of Service: 08/22/20 Subjective Patient continues to appear depressed. Apparently the patient had a rough night last night and oxygen saturations decreased suddenly. Patient had a coughing spell and oxygen saturations were in the 70%. Patient has been on high flow since that time. Currently, patient on 90% percent high flow and oxygen saturations are 95%. Review of Systems 10-point ROS is otherwise unremarkable Physical Examination - Vital Signs Reviewed - Physical Exam General: Alert, In no apparent distress, Oriented x3, Mild distress Respiratory: Expiratory wheezes, Rhonchi/gurgles Cardiovascular: Regular rate/rhythm, Normal S1 S2, Systolic murmur Gastrointestinal: Normal bowel sounds, Soft and benign, Non-distended Musculoskeletal: No clubbing, No swelling Neurological: Normal speech, Sensation intact, Cranial nerves 3-12 intact, Abnormal gait, Abnormal strength Assessment & Plan - Problems (Diagnosis) (1) Hypoxia Current Visit: Yes Status: Acute (2) Pneumonia due to COVID-19 virus Current Visit: Yes Status: Acute (3) Morbid obesity Current Visit: Yes Status: Acute - Plan Plan of care as mentioned below 1. Monitor oxygenation; Currently on high flow and 90% 2. Continue IV steroids 3. We may repeat chest x-ray if symptoms are worsening 4. O2 per protocol 5. Pulmonary consultation appreciated 6. Continue with albuterol inhaler therapy; 7. Continue antivirals 8. Monitor LFTs 9. [place] inflammatory markers as well 10. GI and DVT prophylaxis
[2020-08-23 04:18] LABS: ALT/SGPT 67 U/L (12-78); AST/SGOT 18 U/L (15-37); Alkaline Phosphatase 28 U/L (45-117); Bilirubin Direct 0.2 mg/dL (0-0.2); Bilirubin Total 0.5 mg/dL (0.2-1.0); Protein, Total 7.4 g/dL (6.4-8.2)
[2020-08-23 08:39] VITALS: BP 102/57; TEMP 98.6
[2020-08-23 08:43] LABS: C-Reactive Protein 7.62 mg/L (<3.00); Ferritin 121.9 ng/mL (8-388)
[2020-08-23] MEDS: FAMOTIDINE 20 MG/2 ML VIAL IV SCH (08:44)
[2020-08-23] MEDS: VITAMIN D 5,000 UNIT CAP PO SCH (08:44)
[2020-08-23] MEDS: ASCORBIC ACID 500 MG TABLET PO SCH (08:44)
[2020-08-23] MEDS: APIXABAN 2.5 MG TABLET PO SCH (08:44)
[2020-08-23] MEDS: ZINC SULFATE 220 MG CAP PO SCH (08:44)
[2020-08-23] MEDS: METHYLPREDNISOLONE 40 MG INJ IV SCH (08:44)
[2020-08-23 08:51] LABS: Basophils % 0.3 % (0-1.3); Lymphocytes % 16.1 % (15.3-44.8); MPV 9.3 fL (7.6-11.3); RBC Red Blood Cell Count 5.04 M/uL (3.86-4.86)
[2020-08-23] MEDS ORDERED: Remdesivir 100 MG in NA CHLORIDE 0.9% 250 ML IV SCH (09:00)
[2020-08-23 09:08] VITALS: O2SAT 98
[2020-08-23 10:40] LABS: Blood Morphology Comment NOT SEEN (NOT SEEN); Platelet Estimate INCR
--- NOTE | 2020-08-23 10:52 | P.DS ---
Admission Date: 08/18/20 Discharge Date: 08/23/20 Primary Care Provider: None Disposition: AMA-LEFT AGAINST MEDICAL ADVIC Discharge Condition: GOOD Reason for Admission: COVID Pneumonia, Hypoxia Consultations: Pulmonary-Dr. Purcell Procedures: COVID: Positive CT Scan: FINDINGS: No evidence of pulmonary thromboembolism. No acute aortic finding demonstrated. Extensive bilateral alveolar lung infiltrates are present likely representing COVID-19 infection. No significant pericardial or pleural fluid. No concerning bony finding. IMPRESSION: No evidence of pulmonary thromboembolism. Extensive bilateral alveolar lung infiltrates are present likely representing COVID-19 infection. Medical problem list: Dyspnea secondary to acute respiratory failure related to bilateral COVID 19 pneumonia Depression Obesity, BMI 35.8 Brief History of Present Illness: 25-year-old female with no known allergies, no past medical history, no surgical history and is currently on no medications that presented to the emergency room after having increased shortness of breath with cough over the last 8 days. Patient states about 3 days ago had increasingly become worse. Has mild shortness of breath at rest but increase shortness of breath with exertion. Patient was worked up in the emergency room today and have a sodium of 141, potassium 3.8, chloride 110, bicarb 24, BUN 10, creatinine 0.54, glucose 106. Patient had a CRP of 131. Patient had a hemoglobin of 11.7, white cell count is 7.5, hematocrit of 35.7, platelet of 201. Chest x-ray shows moderate bilateral pulmonary opacities consistent with covid pneumonia. CT PE did not show any acute pulmonary embolism. Patient was admitted for further evaluation and treatment. Hospital Course: Patient presented with dyspnea secondary to acute respiratory failure related to bilateral COVID 19 pneumonia. The patient was admitted for treatment. Patient received IV steroids, ivermectin and supplementation. Patient was seen and evaluated by pulmonology. The patient did require high-flow oxygen. Patient also appears to have underlying depression. During the course of her stay her condition required more oxygen then when she first presented. Patient desired to go home. It was explained to the patient that the patient should wait until patient can safely use less than 4 L per nasal cannula. She will continue with oxygen to maintain sats above 93%. Patient was adamant about going home. Patient wishes to leave against medical advice. This was addressed in detail with the on speaker phone and in person. Both the patient and understand the consequences of leaving prematurely including worsening COVID respiratory failure requiring intubation and ultimately . Patient still wishes to leave against medical advice. Oxygen has been arranged prior to discharge. This was discussed in detail with pulmonology. Patient has signed paperwork. I have readdressed my concerns with the patient and the . expresses that the patient is able to make her own decisions. Patient will leave against medical advice. At this time I will recommend that the patient follow up with pulmonology within 1 week to follow up this h ospitalization. Prescriptions for the patient include prednisone 20 mg 1 pill twice daily for 7 days then 1 pill once daily for 7 days. Patient will also continue with vitamin-C 500 mg 3 times a day, vitamin-D 5000 units daily, thiamine 100 mg 1 pill twice daily, zinc 220 mg daily, and melatonin 5 mg at bedtime. Recommend to monitor her oxygen level consistently. Recommend to maintain oxygen above 93%. Patient may need to limit her activities. Recommend follow up with pulmonology as directed above to continue her care. Education on COVID 19 isolation and education will be provided. A list of PCPs in the area to establish care will also be provided. Patient likely has underlying depression. Will recommend that she follow up with her PCP or psychiatry to further address. Patient with obesity, BMI 35.8. Lifestyle modification education provided. Vital Signs/Physical Exam: Temp Pulse Resp BP Pulse Ox 98.6 F 62 24 H 102/57 L 97 08/23/20 08:00 08/23/20 08:00 08/23/20 08:00 08/23/20 08:00 08/23/20 08:00 General: Alert, Other (Patient appears depressed. Flat affect noted) HEENT: Atraumatic Neck: Supple Respiratory: Other (Patient was requiring high-flow oxygen at 90%) Cardiovascular: Normal pulses, Regular rate/rhythm Gastrointestinal: No guarding Integumentary: No tenderness/swelling Neurological: Normal speech, Normal strength at 5/5 x4 extr, Normal tone, Normal affect Laboratory Data at Discharge: WBC 12.70 K/uL (4.3-10.9) H 08/23/20 08:05 Hgb 13.3 g/dL (12.0-15.0) 08/23/20 08:05 Hct 41.0 % (36.0-45.0) D 08/23/20 08:05 Plt Count 407 K/uL (152-406) H D 08/23/20 08:05 PT 18.0 SECONDS (9.5-12.5) H 08/18/20 18:05 INR 1.56 08/18/20 18:05 APTT 25.6 SECONDS (24.3-36.9) 08/18/20 18:05 Sodium 144 mmol/L (136-145) 08/20/20 03:30 Sodium 146 mmol/L (136-145) H 08/20/20 03:30 Potassium 4.1 mmol/L (3.5-5.1) 08/20/20 03:30 Potassium 4.1 mmol/L (3.5-5.1) 08/20/20 03:30 BUN 14 mg/dL (7-18) 08/20/20 03:30 BUN 15 mg/dL (7-18) 08/20/20 03:30 Creatinine 0.58 mg/dL (0.55-1.3) 08/23/20 03:23 Glucose 140 mg/dL (74-106) H 08/20/20 03:30 Glucose 142 mg/dL (74-106) H 08/20/20 03:30 Phosphorus 3.9 mg/dL (2.5-4.9) 08/20/20 03:30 Magnesium 2.3 mg/dL (1.8-2.4) 08/20/20 03:30 Total Bilirubin 0.5 mg/dL (0.2-1.0) 08/23/20 03:23 AST 18 U/L (15-37) 08/23/20 03:23 ALT 67 U/L (12-78) 08/23/20 03:23 Alkaline Phosphatase 28 U/L (45-117) L 08/23/20 03:23 Triglycerides 118 mg/dL (<150) 08/19/20 03:17 Cholesterol 137 mg/dL (<200) 08/19/20 03:17 HDL Cholesterol 37 mg/dL (40-60) L 08/19/20 03:17 Cholesterol/HDL Ratio 3.70 08/19/20 03:17 Lipase 40 U/L (73-393) L 08/18/20 18:05 Home Medications: Ascorbic Acid [Vitamin C*] 500 mg PO TID #90 tablet 08/23/20 Aspirin [Aspirin EC 81 MG] 81 mg PO DAILY #30 tablet. 08/23/20 Cholecalciferol (Vitamin D3) [Vitamin D 5,000 IU Cap*] 5,000 unit PO DAILY #30 cap 08/23/20 Melatonin 5 mg PO BEDTIME #30 tablet 08/23/20 Thiamine HCl 100 mg PO BID #60 tablet 08/23/20 Zinc Sulfate [Zinc Sulfate*] 220 mg PO DAILY #30 cap 08/23/20 predniSONE [Prednisone*] 20 mg PO SEECOM #21 tab 08/23/20 New Medications: Aspirin [Aspirin EC 81 MG] 81 mg PO DAILY #30 tablet. Melatonin 5 mg PO BEDTIME #30 tablet predniSONE [Prednisone*] 20 mg PO SEECOM #21 tab Thiamine HCl 100 mg PO BID #60 tablet Ascorbic Acid [Vitamin C*] 500 mg PO TID #90 tablet Cholecalciferol (Vitamin D3) [Vitamin D 5,000 IU Cap*] 5,000 unit PO DAILY #30 cap Zinc Sulfate [Zinc Sulfate*] 220 mg PO DAILY #30 cap Physician Discharge Instructions: Patient presented with dyspnea secondary to acute respiratory failure related to bilateral COVID 19 pneumonia. The patient was admitted for treatment. Patient received IV steroids, ivermectin and supplementation. Patient was seen and evaluated by pulmonology. The patient did require high-flow oxygen. Patient also appears to have underlying depression. During the course of her stay her condition required more oxygen then when she first presented. Patient desired to go home. It was explained to the patient that the patient should wait until patient can safely use less than 4 L per nasal cannula. Patient was adamant about going home. Patient wishes to leave against medical advice. This was addressed in detail with the on speaker phone and in person. Both the patient and understand the consequences of leaving prematurely including worsening COVID respiratory failure requiring intubation and ultimately . Patient still wishes to leave against medical advice. Oxygen has been arranged prior to discharge. She will continue with oxygen to maintain sats above 93%. This was discussed in detail with pulmonology. Patient has signed paperwork. I have readdressed my concerns with the patient and the . expresses that the patient is able to make her own decisions. Patient will leave against medical advice. At this time I will recommend that the patient follow up with pulmonology within 1 week to follow up this hospitalization. Prescriptions for the patient include prednisone 20 mg 1 pill twice daily for 7 days then 1 pill once daily for 7 days. Patient will also continue with vitamin-C 500 mg 3 times a day, vitamin-D 5000 units daily, thiamine 100 mg 1 pill twice daily, zinc 220 mg daily, and melatonin 5 mg at bedtime. Recommend to monitor her oxygen level consistently. Recommend to maintain oxygen above 93%. Patient may need to limit her activities. Recommend follow up with pulmonology as directed above to continue her care. Education on COVID 19 isolation and education will be provided. A list of PCPs in the area to establish care will also be provided. Patient likely has underlying depression. Will recommend that she follow up with her PCP or psychiatry to further address. Patient with obesity, BMI 35.8. Lifestyle modification education provided. Diet: AHA Activity: Ad jason Followup: NONE,NONE [Primary Care Provider] - Time spent managing pt's care (in minutes): 55
== END 2020-08-23 10:59 | disposition left against medical advice (07) | DRG 177 ==
LOC: ER 16:37 → 4TH 21:36
PROVIDERS: ADMIT Hospitalist; ATTEND Family Medicine
PROC: XW033E5 Introduction of Remdesivir Anti-infective into Peripheral Vein, Percutaneous Approach, New Technology Group 5 (ICD-10-PCS; principal; 2020-08-23)
DX: U07.1 COVID-19 (principal); J12.82 Pneumonia due to coronavirus disease 2019; J96.01 Acute respiratory failure with hypoxia; F32.9 Major depressive disorder, single episode, unspecified; E66.01 Morbid (severe) obesity due to excess calories; Z68.35 Body mass index [BMI] 35.0-35.9, adult; Z79.52 Long term (current) use of systemic steroids; Z79.82 Long term (current) use of aspirin; Z53.29 Procedure and treatment not carried out because of patient's decision for other reasons; Z79.899 Other long term (current) drug therapy
CPT/HCPCS: 36415; 71045; 71275; 80048; 80053; 80061; 80076; 81001; 81003; 81015; 81025; 82565; 82728; 83605; 83690; 83735; 83880; 84100; 84145; 84484; 85025; 85379; 85610; 85730; 86140; 87040; 93005; 94002; 94760; 94762; 96374; 99285; J1100; J2405; J2920; J3411; J7030; J7050; Q9967; U0003